=== PATIENT | male | born 1965 | race Caucasian/White ===

== ENCOUNTER 2016-11-27 10:46 | Emergency (ER) | payer OTHER | END 2016-11-27 13:01 | disposition home or self-care (01) | LOC: ER 10:46 | DX: M45.9 Ankylosing spondylitis of unspecified sites in spine (principal); G89.29 Other chronic pain; F17.210 Nicotine dependence, cigarettes, uncomplicated; Z79.899 Other long term (current) drug therapy | CPT/HCPCS: 72125; 72128; 72131; 99283-25 ==